=== PATIENT | female | born 1970 | race Caucasian/White ===

== ENCOUNTER 2019-05-18 09:43 | Observation (INO) | payer BC ==
--- NOTE | 2019-05-18 10:50 | RAD ---
SINGLE VIEW CHEST: Date: 05/18/19 COMPARISON: None. HISTORY: Dizziness. FINDINGS: Single view of the chest shows a normal sized cardiomediastinal silhouette. There is no evidence of c onsolidation, mass, or pleural effusion. The bones are unremarkable. IMPRESSION: No evidence of acute cardiopulmonary disease. POS: CET
[2019-05-18 10:52] LABS: #Lymphocytes 1.7 thou/uL (1.20-3.40); #Monocytes 0.3 thou/uL (0.11-0.59); #Neutrophils 2.6 thou/uL (1.40-6.50); %Basophils 0.7 % (0.0-1.0); %Eosinophils 0.9 % (0.0-10.0); %Lymphocytes 35.7 % (21.0-51.0); %Monocytes 6.9 % (0.0-10.0); %Neutrophils 55.8 % (42.0-75.0); Hemoglobin 13.1 g/dL (12.0-16.0); Mean Corpuscular HGB CONC 33.8 g/dL (32.0-36.0); Mean Corpuscular Hemoglobin 30.2 pg (27.0-31.0); Mean Corpuscular Volume 89.3 fL (78.0-98.0); Mean Platelet Volume 7.3 fL (7.4-10.4); Platelet Count 215 thou/uL (130-400); RBC Distribution Width 11.8 % (11.5-14.5); Red Blood Cell (RBC) Count 4.35 mill/uL (4.20-5.40); White Blood Cell (WBC) Count 4.7 thou/uL (4.8-10.8)
[2019-05-18 11:14] LABS: ALT (SGPT) 10 U/L (8-55); AST (SGOT) 15 U/L (5-34); Albumin 4.1 g/dL (3.5-5.0); Alkaline Phosphatase 86 U/L (40-150); Anion Gap 8 mmol/L (10-20); BUN (Urea Nitrogen) 6 mg/dL (7.0-18.7); Bilirubin, Total 0.7 mg/dL (0.2-1.2); CK (CPK) 52 U/L (29-168); Calc. Creatinine Clearance 0 mL/min (70-130); Calcium 9.4 mg/dL (7.8-10.44); Carbon Dioxide 30 mmol/L (22-29); Chloride 107 mmol/L (98-107); Estimated GFR-MDRD 86; Globulin 2.5 g/dL (2.4-3.5); Glucose 85 mg/dL (70-105); Potassium 3.8 mmol/L (3.5-5.1); Protein, Total 6.6 g/dL (6.0-8.3); Sodium 141 mmol/L (136-145)
[2019-05-18] MEDS ORDERED: hydrALAZINE 20 MG/ML VIAL SLOW IVP PRN (13:47)
[2019-05-18] MEDS ORDERED: Ondansetron ODT 4 MG TAB PO PRN (13:52)
[2019-05-18] MEDS ORDERED: Calcium Carbonate 500 MG ChewTAB PO PRN (13:52)
[2019-05-18] MEDS ORDERED: HYDROcodone/Acetaminophen 7.5/325 mg Tablet PO PRN (13:52)
[2019-05-18] MEDS ORDERED: Acetaminophen 325 MG TAB PO PRN (13:52)
[2019-05-18] MEDS ORDERED: Senokot S 8.6-50 MG TAB PO PRN (13:52)
[2019-05-18] MEDS ORDERED: Bisacodyl 5 MG TAB PO PRN (13:52)
[2019-05-18] MEDS ORDERED: Ondansetron PF 4 MG/2 ML Vial IVP PRN (13:52)
[2019-05-18] MEDS ORDERED: HYDROcodone/Acetaminophen 5/325 mg Tablet PO PRN (13:52)
[2019-05-18 15:16] LABS: Troponin I Less than 0.010 ng/mL (< 0.028)
[2019-05-18 17:21] LABS: Troponin I Less than 0.010 ng/mL (< 0.028)
[2019-05-18 18:03] VITALS: BMI 32.1
[2019-05-18] MEDS ORDERED: Ketorolac Tromethamine 30 MG/ML VIAL IVP SCH (20:45)
[2019-05-18] MEDS ORDERED: Atorvastatin Calcium 40 MG TAB PO SCH (21:00)
[2019-05-19 05:17] LABS: #Eosinphils 0.2 thou/uL (0.0-0.7); #Lymphocytes 2.2 thou/uL (1.20-3.40); #Monocytes 0.3 thou/uL (0.11-0.59); #Neutrophils 2.5 thou/uL (1.40-6.50); %Basophils 0.7 % (0.0-1.0); %Eosinophils 3.6 % (0.0-10.0); %Lymphocytes 42.3 % (21.0-51.0); %Monocytes 5.6 % (0.0-10.0); %Neutrophils 47.8 % (42.0-75.0); Hemoglobin 12.6 g/dL (12.0-16.0); Mean Corpuscular HGB CONC 33.7 g/dL (32.0-36.0); Mean Corpuscular Hemoglobin 30.6 pg (27.0-31.0); Mean Platelet Volume 7.4 fL (7.4-10.4); Platelet Count 194 thou/uL (130-400); RBC Distribution Width 11.8 % (11.5-14.5); Red Blood Cell (RBC) Count 4.12 mill/uL (4.20-5.40); White Blood Cell (WBC) Count 5.2 thou/uL (4.8-10.8)
[2019-05-19 05:46] LABS: Anion Gap 11 mmol/L (10-20); BUN (Urea Nitrogen) 9 mg/dL (7.0-18.7); Calc. Creatinine Clearance 145 mL/min (70-130); Calcium 9.1 mg/dL (7.8-10.44); Carbon Dioxide 26 mmol/L (22-29); Cardiac Risk 3.3 (Less than 4.5); Chloride 107 mmol/L (98-107); Cholesterol 140 mg/dl (< 200 Desired); Estimated GFR-MDRD Greater than 90; Glucose 92 mg/dL (70-105); HDL Cholesterol 42 mg/dL (>60 Neg Risk); LDL Cholesterol, Calculated 79 mg/dL; Potassium 3.3 mmol/L (3.5-5.1); Sodium 141 mmol/L (136-145); Triglycerides 97 mg/dL (Less than 150)
--- NOTE | 2019-05-19 08:26 | HP ---
CHIEF COMPLAINT: Palpitations, chest pain, and shortness of breath. HISTORY OF PRESENT ILLNESS: A very pleasant 48-year-old white female, who presents with worsening palpitations, chest pain, and shortness of breath, that started this afternoon. The patient states that she is otherwise healthy, and she has been feeling well. The patient was in the car driving from [place] to visit her mother when she acutely developed what she describes as fluttering in her chest, trouble catching her breath, and then a pain in her chest. This was severe enough to the point where she had to stop her car and ticket puller to the side of the road immediately. After a few moments, the patient's symptoms did improve to the point where she decided to drive herself to the hospital for further evaluation. The patient's past medical history is significant for recurrent episodes of chest pain, for which she has followed up with a staffing administrator. [facility]dl Service Technician in the outpatient setting recommended cardiac catheterization, which the patient did undergo, which she states roughly 2 months ago. The patient does not recall the exact details of everything that were found, but she tells me that she has an artery with roughly 20% blockage in one artery and no intervention was required. Patient was also told by the staffing administrator that she has multiple "leaky valves". The patient does not recall the names of the valves, but she was told that she has 2 valves that are abnormal. I find the patient in the emergency department. She is lying in bed, in an anxious state. The patient's son is at bedside, able to aid in history. At this time, the patient denies any palpitations, shortness of breath, or chest pain. The patient states that she is feeling a little bit dizzy. The patient endorses some numbness on the right side of her face, which also is acute onset and happened after the palpitations. The patient denies history of arrhythmias. She denies ever being diagnosed of atrial fibrillation in the past. Also recently the patient was seen by her primary care physician this past week for anxiety and panic attacks. The patient states that she saw her primary care physician and was having the panic attack at that time and was hot and sweaty while in the office. The patient states that 2 days ago, she was started on Zoloft by her primary care physician. The patient has had no symptoms up until today. PAST MEDICAL HISTORY: 1. Panic attack/anxiety. 2. Chest pain. PAST SURGICAL HISTORY: Denies. SOCIAL HISTORY: The patient states that she is otherwise healthy and does her activities of daily living without problems. The patient denies daily alcohol use, tobacco, or illicit drugs. MEDICATIONS: 1. Zoloft. 2. Aspirin 81 mg. ALLERGIES: NO KNOWN DRUG ALLERGIES. REVIEW OF SYSTEMS: A 10-point review of systems was conducted and otherwise negative aside of what found in HPI. PHYSICAL EXAMINATION: VITAL SIGNS: Please see electronic medical record for full vital signs. Heart rate 65, sinus rhythm; blood pressure 125/83, temperature 98.7. GENERAL: The patient is anxious, rapid speech, not diaphoretic. HEENT: Head is atraumatic and normocephalic. Moist mucous membranes. NECK: No significant JVD. CARDIAC: Regular rate and rhythm. No appreciable murmur. No rubs. No gallops. LUNGS: Lungs are clear to ausculation bilaterally. No wheezing, rales, or rhonchi ABDOMEN: Elevated BMI. Abdomen is soft, nontender, and nondistended. No guarding or rigidity. BACK: Paraspinal muscles are and nontender to the touch. There is no gross kyphosis or scoliosis. EXTREMITIES: Lower extremities; negative for edema. Upper extremities; negative for edema. Full range of motion in all extremities without limitations. NEUROLOGIC: The patient's cranial nerves are grossly intact, 2 through 12, aside from subjective numbness and tingling on the right side of the face. The patient's facial muscles are intact and symmetrical. The patient's motor strength was tested and symmetrical without deficits. LABORATORY DATA: WBC 7.4, RBC 4.35, hemoglobin 13.1, hematocrit 38.9, MCV is 89.3, platelets 215. Sodium 141, potassium 3.8, chloride 107, carbon dioxide 30, anion gap 8, blood urea nitrogen 6, creatinine 0.73, estimated GFR 86, glucose 85, calcium 9.4, magnesium 2.0. Total bilirubin 0.7, AST 15, ALT 10, alkaline phosphatase 86. Creatinine kinase 52, troponins less than 0.010. BNP 40.9. Serum total protein 6.6, albumin 4.1. ASSESSMENT: 1. Palpitations. 2. Shortness of breath. 3. Chest pain. 4. Subjective numbness and tingling on the right side of the face, concern for possible transient ischemic attack. 5. Dizziness. 6. Panic attack/anxiety. PLAN: 1. Admit to medical unit with telemetry. 2. Cardiology consultation. 3. Neurology consultation. 4. Continuous telemetry for monitor for arrhythmia. 5. Echocardiogram. 6. MRI of the brain to rule out acute CVA. 7. P.r.n. medications to control blood pressure. 8. Neurologic examination q.4 hours, de-escalate per protocol. DISPOSITION: With the acute onset of the patient's palpitations, chest pain, and shortness of breath followed by numbness and tingling of the face, there is concern that the patient may have developed an acute arrhythmia and subsequently suffered from a transient ischemic attack. The patient to be monitored on continuous telemetry and monitor for further arrhythmias. If initial monitoring in the acute care hospital is negative for arrhythmias, the patient may benefit from Holter monitor as an outpatient setting versus implantable loop recorder when she follows up with her staffing administrator. We will obtain records from her staffing administrator in [place] concerning the patient's recent cardiac catheterization and echocardiogram reports. Job ID: [id number] MTDD
[2019-05-19] MEDS ORDERED: Aspirin 81 mg Enteric Coated Tablet PO SCH (09:00)
--- NOTE | 2019-05-19 09:11 | MRI ---
MRI brain noncontrast HISTORY: TIA. FINDINGS: There is no evidence of acute intracranial hemorrhage or infarct. The ventricles appear nor mal in size, shape and position. There is no mass effect or shift of midline structures. Visualized paranasal sinuses remain well-aerated. IMPRESSION: No acute intracranial abnormalities are demonstrated.
[2019-05-19] MEDS ORDERED: hydrOXYzine 25 MG TAB PO PRN (11:22)
[2019-05-19] MEDS ORDERED: Fioricet 325/50/40 mg Tablet PO PRN (11:25)
[2019-05-19] MEDS ORDERED: HYDROcodone/Acetaminophen 5/325 mg Tablet PO PRN (11:27)
--- NOTE | 2019-05-19 12:04 | CON ---
DATE OF TELEMEDICINE CONSULTATION: 05/19/2019, SUDARSHAN HAGEN CHIEF COMPLAINT: Dizziness. HISTORY OF PRESENT ILLNESS: The patient reports she was driving from [place] to our area in [place] to see her mother. She was going to help her with some yard work. The patient was on the highway. She felt dizzy, nauseous, and also had tingling and numbness of the face, right cheek became numb, and she also had a lot of sweating and she pulled over to the side and drove herself to the hospital slowly. She has flutters in her heart sometimes with palpitation and that was present yesterday as well. She does get dizzy quite a bit. She takes medications for anxiety. Her head feels heavy. Tongue is swollen. She felt weird yesterday when this happened. She was started on Zoloft 2 days ago, but she has not had any side effects with it the first 2 days she has taken this medication. She also has had sweating yesterday. She has had a 1 month history of dropping things from her right hand and tingling of the right hand. She has chronic neck pain, and she does feel anxious quite a bit, especially when she learns about any health issues. PREVIOUS MEDICAL HISTORY: Two months ago, she had some cardiac workup with angiogram and she was told she had 20% blockage in one of her arteries and she has two leaky valves. 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 Previous medical history also includes endometriosis, hysterectomy 17 years ago. FAMILY HISTORY: She has 2 brothers, 2 sisters, 1 sister who is 48 has hypothyroidism. Her siblings are 46, 37, and 42 years of age and 48. Mother is 68. She has Raj thyroiditis. Father had a stent and an SC and is diabetic. He is 68 years old. The patient has 5 children, ages 25 to 18. REVIEW OF SYSTEMS: PULMONARY: Negative for shortness of breath and cough. CARDIOVASCULAR: Positive for dizziness and palpitations. PSYCHIATRIC: Positive for anxiety. NEUROLOGICAL: Positive for dizziness, tingling, numbness, neck pain, and dropping things with her right hand. DERMATOLOGIC: Negative. ENDOCRINE: Negative. LABORATORY DATA: White count 5.2, hemoglobin 12.6, hematocrit 37.5, and platelets 194. Chemistry; sodium 141, potassium 3.3, chloride 107, bicarb 26, BUN 9, creatinine 0.67. Triglycerides 97, cholesterol 140, LDL 79, and HDL 42. Her MRI of the brain was negative for any acute infarct, and no acute intracranial abnormalities are detected. Echocardiogram is pending. PHYSICAL EXAMINATION: VITAL SIGNS: Temperature 97.3, pulse 59, respiratory rate 20, O2 sats 100, blood pressure 124/60, standing blood pressure 128/65, supine blood pressure 118/59. GENERAL APPEARANCE: Well-built, well-nourished, slightly nervous individual. CHEST: Clear vesicular breathing. CARDIOVASCULAR: S1 and S2 heard. No murmurs. ABDOMEN: Soft. NEUROLOGIC: Higher intellectual functions. Normal orientation to time, place, and person. Cranial nerves, pupils are 4 mm, reactive to light bilaterally. No facial asymmetry noted. Normal sensation of face bilaterally. Normal hearing to finger rub bilaterally. Tongue midline. No atrophy noted. Motor examination, bulk normal. Tone normal. Strength 5/5 throughout in iliopsoas, hamstrings, quadriceps, ankle dorsiflexion, plantar flexion bilaterally. Strength 5-/5 in the deltoid, biceps, triceps, wrist extension and flexion, finger extension and flexion in the right upper extremity. Deep tendon reflexes are 2+ throughout. Sensory, normal to touch bilaterally in upper and lower extremities. Cerebellar, normal finger-to- nose and [id number]. IMPRESSION: The patient is a 48-year-old lady with some cardiac issues and anxiety. She felt dizzy, nauseous, had tingling of the face, palpitations, and sweating, which brought her to the hospital yesterday. Her current workup for stroke is negative. She did not have a cerebrovascular accident on MRI. At this time, other than cardiac causes of dizziness and palpitation, we need to rule out any vascular event in the [employer]. Her diagnosis is most consistent with dizziness, likely secondary to cardiac issues or anxiety. RECOMMENDATIONS: 1. I will obtain CT angiogram to rule out any carotid disease and also intracranial vascular disease. 2. Please obtain MRI of the neck since she does have chronic neck pain and has right hand weakness, which has been present for a while. 3. I will follow up the patient with you tomorrow. Job ID: [id number] [facility]
--- NOTE | 2019-05-19 13:14 | CT ---
CT ANGIOGRAM HEAD CT ANGIOGRAM NECK: Date: 05/19/2019 COMPARISON: None. HISTORY: Dizziness. TECHNIQUE: Axial CT imaging at 5 mm intervals from vertex through skull base without contrast. Then, axial CT imaging at 1.25 mm intervals from lung apices through the vertex with IV contrast using CT angiogram protocol. Coronal and sagittal 3-D reformatted imaging obtained. FINDINGS: Noncontrast enhanced head CT demonstrates no intracranial hemorrhage, midline shift, mass effect, or ventricular enlargement. Imaged paranasal sinuses and mastoid air cells are well aerated. The imaged lung apices are unremarkable. The retroantral fat and the parapharyngeal fat is clear bilaterally. The parotid glands and submandib ular glands are grossly unremarkable. Limited assessment of the aerodigestive tract appears grossly unremarkable. The innominate artery, right subclavian artery, right common carotid artery, left common carotid marisol ry, and left subclavian artery demonstrate no hemodynamically significant stenosis at their origins. Bilateral vertebral arteries are unremarkable. On the basis of NASCET criteria, there is no hemodynamically significant stenosis seen involving the common carotid artery or the internal carotid artery on either side. The ICA bifurcation is normal bilaterally. The basilar artery and its branches are patent. No saccular aneurysm, high-grade stenosis, or vascula r occlusion is seen involving the posterior circulation. The A1 segment, region of the anterior communicating artery, and distal AFSHIN branches appear unremarka ble. M1 segment patent bilaterally. MCA bifurcation unremarkable bilaterally. Distal MCA branches appear intact. No saccular aneurysm, high-grade stenosis, or vascular occlusion is seen involving the anterior circulation on either side. Review of the osseous structures demonstrate no acute findings. IMPRESSION: Grossly unremarkable CT angiogram of the head and neck. Transcribed Date/Time: 05/19/2019 1:32 PM
--- NOTE | 2019-05-19 14:38 | CON ---
DATE OF CONSULTATION: 05/19/2019 REASON FOR CONSULTATION: Palpitations. HISTORY OF PRESENT ILLNESS: Ms. Pradhan is a very pleasant 48-year-old white female, who comes to the hospital for having a presyncopal spell. She was driving from the [place] area, where she lives, up to [place] to see her mother. She started having dizziness, nausea, tingling and numbness of the face, so she decided to black puller as she felt she could not keep driving. Eventually, it past and she was able to drive herself into the hospital. She has been evaluated by Cardiology in the past. She has had a heart catheterization at some point in November of this year at [facility] and it was unremarkable. She had a 20% stenosis in one of her arteries. She has also had stress test and echos. On the echo, she said everything looked normal except for mildly leaking valves. She sees her decontamination worker regularly in [place]. Recently, she was referred to see a primary care doctor for control of her anxiety and she was started on Zoloft. This just was started 2 days before this episode. PAST MEDICAL HISTORY: 1. Mild coronary artery disease. 2. Endometriosis. 3. Hysterectomy 17 years ago. FAMILY HISTORY: Father had an WI and stents placed in the past. SOCIAL HISTORY: No alcohol, tobacco, or drugs. OUTPATIENT MEDICATIONS: 1. Zoloft 50 mg q.h.s. 2. Aspirin 81 a day. ALLERGIES: NO KNOWN DRUG ALLERGIES. REVIEW OF SYSTEMS: A 12-point review of systems was done and was all negative unless stated in the history of present illness. PHYSICAL EXAMINATION: VITAL SIGNS: Temperature 97.3, pulse 56, respiratory rate 16, saturating 99% on room air, blood pressure 124/75. GENERAL: Awake, alert, oriented x3, in no distress. HEENT: Normocephalic and atraumatic. NECK: Supple. LUNGS: Clear. CARDIOVASCULAR: S1 and S2. No S3 or S4. No murmurs. ABDOMEN: Soft. Positive bowel sounds. EXTREMITIES: No edema. SKIN: Warm and dry. LABORATORY DATA: Laboratory work was reviewed. CBC with a white count of 4, hemoglobin of 13, hematocrit of 38, platelet count of 215. Chemistry is unremarkable. Potassium is lower today at 3.3. Troponins negative x3. BNP is normal. Albumin is normal. Lipids are normal. EKG was reviewed. Telemetry was reviewed. ASSESSMENT AND PLAN: 1. Dizziness, palpitations, and lightheadedness. At this point, I do not think there is any further cardiac workup that needs to be done except doing an outpatient undercoater. She should be able to get this set up through her decontamination worker in [place]. From the cardiac perspective, she should be able to be discharged home any time today. 2. Her symptoms more likely are related to the addition of Zoloft just 2 days ago. She has only had two doses. I would probably stop this medication and have her follow up with her primary care doctor to change this to something different. 3. Other options are samir-tachyarrhythmias. Her palpitations would suggest a tachyarrhythmia. However, I doubt that this is related to this. Most likely, it was just a reaction to the medication. As above, heart monitor as an outpatient. Here, she has been monitored with no tachy or bradyarrhythmias. Thank you for letting us to participate in care of this patient. We will sign off. Please call with any questions. Job ID: [id number]
[2019-05-19 15:42] VITALS: BP 121/64; TEMP 97.7
[2019-05-19] MEDS ORDERED: Iopamidol 370 76% 100 ML VIAL ONE (15:47)
--- NOTE | 2019-05-19 16:20 | PDOC.HOSPP ---
- Subjective Subjective: Patient seen and examined. Patient states that facial numbness has resolved. Does have chronic arm pain/ numbness and tingling - Neurology recommending and MRI of the C-spine with outpatient follow up. Still with panic attack symptoms. Stopping Zoloft, starting hydroxyzine for panic attacks. Patient seen by Cardiology and cleared for D/c with recent negative cardiac catheterization. - Objective Vital Signs & Weight: Vital Signs (12 hours) Temp Pulse Pulse Pulse Resp BP BP 05/19/19 15:30 97.7 F 71 20 05/19/19 11:40 97.3 F L 56 L 16 05/19/19 10:48 62 122/59 L 05/19/19 08:57 55 L 65 124/68 127/78 05/19/19 08:17 97.3 F L 59 L 20 BP BP BP Pulse Ox 05/19/19 15:30 121/64 96 05/19/19 11:40 124/75 99 05/19/19 10:48 05/19/19 08:57 05/19/19 08:17 124/60 128/65 118/59 L 100 Weight Weight 193 lb 8 oz I&O: 05/18/19 05/19/19 05/20/19 06:59 06:59 06:59 Intake Total 290 Output Total 300 Balance -10 Result Diagrams: 05/19/19 04:36 05/19/19 04:36 Radiology Reviewed by me: Yes (Normal MRI brain reviewed) ROS - Medication Medications: Active Medications Generic Name Dose Route Start Last Admin Trade Name Freq PRN Reason Stop Dose Admin Aspirin 81 mg 05/19/19 09:00 05/19/19 08:26 Ecotrin PO 81 mg DAILY CORINA Administration Atorvastatin Calcium 40 mg 05/18/19 21:00 05/18/19 20:21 Lipitor PO 40 mg HS CORINA Administration Sodium Chloride 10 ml 05/18/19 13:47 05/18/19 20:22 Flush - Normal Saline IVF 10 ml PRN PRN Administration Saline Flush - Exam NAD, awake alert Eye: PERRL, anicteric sclera ENT: normocephalic atraumatic, moist mucosa Neck: supple, symmetric Heart: RRR, no murmur, no rubs Respiratory: CTAB, no wheezes, no rales, no ronchi Gastrointestinal: soft, non-tender, non-distended. negative: diminished bowl sounds Extremities: no edema Neurological: CN's grossly intact, normal sensation to touch, no weakness, no focal deficits Musculoskeletal: normal tone. negative: generalized weakness Psychiatric: A&O x 3 Psychiatric - other findings: Anxious Hosp A/P (1) Panic attack Code(s): F41.0 - PANIC DISORDER [EPISODIC PAROXYSMAL ANXIETY] Status: Acute (2) Anxiety Code(s): F41.9 - ANXIETY DISORDER, UNSPECIFIED Status: Acute (3) Near syncope Status: Acute (4) Palpitations with regular cardiac rhythm Code(s): R00.2 - PALPITATIONS Status: Acute (5) Dizzy spells Code(s): R42 - DIZZINESS AND GIDDINESS Status: Acute (6) Chest pain Code(s): R07.9 - CHEST PAIN, UNSPECIFIED Status: Chronic (7) Shortness of breath Code(s): R06.02 - SHORTNESS OF BREATH Status: Acute (8) Numbness and tingling Code(s): R20.0 - ANESTHESIA OF SKIN; R20.2 - PARESTHESIA OF SKIN Status: Acute - Plan Plan: Medical unit with telemetry Cardiology consultation, recommendations appreciated Neurology consultation, recommendations appreciated With recent negative cardiac cath, no further work up needed at this time as inpaient per Cardiology - may require extended telemetry monitoring as outpatient if symptoms persist MRI brain negative MRI C-spine pending, though no acute inpatient workup - will need outpatient follow up CTA head and neck pending to rule out vascular pathology that could explain symptoms Stop Zoloft Start Hydroxyzine for panic attack Fioricet for migraine Limit opiate intake as able for headache Will need follow up with PCP vs psychiatry for further treatment of panic attack
--- NOTE | 2019-05-19 17:34 | MRI ---
MRI CERVICAL SPINE WITHOUT CONTRAST; INDICATIONS: Neck pain. Right upper extremity weakness. FINDINGS: The cervical vertebrae maintain normal height and alignment. Mild loss of disk space at C4-C5 and C5 -C6. Minimal degenerative osteophytes are seen anteriorly. No significant disk bulge or spondylosis seen at C2-C3 or C3-C4. At C4-C5, minimal disk bulge with mild effacement of the anterior subarachnoid space. The foramina a re patent. At C5-C6, mild disk bulge effaces the anterior subarachnoid space and abuts the anterior cord. No si gnificant cord impingement or compression. The foramina appear patent. At C6-C7, no evidence of disk bulge or spondylosis. Cord signal is normal. IMPRESSION: Mild broad-based disk bulge at C5-C6 flattens the thecal sac and effaces the anterior subarachnoid sp christiano, abutting the anterior cord. No significant central canal stenosis. POS: [facility]
[2019-05-19] MEDS ORDERED: hydrOXYzine 25 MG TAB PO SCH (21:00)
--- NOTE | 2019-05-20 18:35 | DIS ---
DATE OF ADMISSION: 05/18/2019 DATE OF DISCHARGE: 05/19/2019 REASON FOR HOSPITALIZATION: Chest pain, shortness of breath, and palpitations. SIGNIFICANT FINDINGS: The patient was found to have negative workup on imaging, metabolic, and remained sinus rhythm throughout her hospitalization. CONDITION ON DISCHARGE: Stable. SPECIFIC INSTRUCTIONS FOR THE PATIENT/FAMILY: 1. The patient is to follow up with primary care physician in the next 5 to 7 days and discuss options for treatment of panic attack/anxiety. 2. Follow up with Cardiology in the next 1 to 2 weeks, the patient may benefit from extended cardiac monitoring in the outpatient setting. 3. Start hydroxyzine therapy as needed for panic attack. 4. Stop Zoloft. MEDICATIONS: 1. Aspirin 81 mg 1 tablet p.o. daily. 2. Hydroxyzine 25 mg q.4 hours p.r.n. anxiety/panic attack. HOSPITAL COURSE: Ms. Pradhan is a very pleasant 48-year-old white female with past medical history of anxiety, who presents with acute onset of palpitations, chest pain, and shortness of breath. Of note, the patient has had these symptoms off and on for the past several months, and she has had a thorough workup by her inspector final assembly mechanical in the outpatient setting. The patient has recently undergone cardiac catheterization in the outpatient setting, in which there was no significant coronary artery disease and no stent placement. There was roughly a 20% blockage in 1 artery, and inspector final assembly mechanical describes multiple leaky valves; however, the patient does not recall which valve or the degree of leaking. The patient had acute onset of episode when she was driving from [place] to see her mother, symptoms were so severe that she had to pullman car clerk her care until symptoms abated. The patient then arrived at [facility] for further evaluation. The patient was evaluated by inspector final assembly mechanical, please see full consultation and progress notes for details. Master Brewer is recommending that with her recent negative cardiac catheterization and echocardiogram, no further acute inpatient workup was required. The patient was monitored on continuous telemetry, and I personally reviewed telemetry findings with solar installation technician, and there were no abnormal rhythms noted throughout her hospitalization. The patient was evaluated by neurologist, please see full consultation notes for details. Neurology was recommending further radiographic imaging. The patient did have an extensive workup including CT angiography of the [place], please see full report for details, which was grossly normal CT angiography of the head and neck. The patient had MRI of brain, please see full report for details. MRI of the brain, negative for acute intracranial abnormalities. The patient had MRI of the cervical spine, please see full report for details. There was mild broad-based disk bulging at the level of C5/C6, that flattens to the thecal sac and effaces the anterior subarachnoid space abutting the anterior cord. There was no significant central canal stenosis. The patient had metabolic workup that was overly normal, please see full laboratory report for details. The patient had echocardiogram that demonstrated a preserved ejection fraction of 55% to 60%, normal diastolic function. There were mild mitral regurgitation, mild tricuspid regurgitation, and mild pulmonic regurgitation. Please see full echo report for details. The patient was recommended safer discharge by all specialists with outpatient followup in the near future. The patient was recommended to follow up with inspector final assembly mechanical in the outpatient setting for telemetry monitoring extended possibly up to 30 days versus loop recorder. The patient was recommended to follow up with primary care physician on strategies to avoid panic attacks. The patient was recommended to stop Zoloft. The patient was recommended to start hydroxyzine, though she was advised that this medication may cause drowsiness, and she is not to operate a motor vehicle on this medication. Job ID: [id number]
== END 2019-05-19 19:11 | disposition home or self-care (01) ==
LOC: ERS 09:43 → ERHOLD 13:00 → 2SW 17:59
PROVIDERS: ADMIT Internal Medicine; ATTEND Internal Medicine
DX: R07.9 Chest pain, unspecified (principal); R06.02 Shortness of breath; R00.2 Palpitations; R20.0 Anesthesia of skin; R42 Dizziness and giddiness; R55 Syncope and collapse; F41.0 Panic disorder [episodic paroxysmal anxiety]; G43.909 Migraine, unspecified, not intractable, without status migrainosus; M50.221 Other cervical disc displacement at C4-C5 level; I25.10 Atherosclerotic heart disease of native coronary artery without angina pectoris; Z98.84 Bariatric surgery status; Z79.82 Long term (current) use of aspirin
CPT/HCPCS: 36415; 70496; 70498; 70551; 71045; 72141; 80048; 80053; 80061; 82550; 83735; 83880; 84484; 85025; 93005; 93306; 96360; 96361; 96374; G0378; J1885; Q9967